=== PATIENT | male | born 1995 | race Hispanic/Latino ===

== ENCOUNTER 2025-02-14 11:04 | Emergency (ER) | payer BC ==
[~2025-02-14] VITALS: Ht 165.1 cm; Wt 61.2 kg
[2025-02-14 11:40] VITALS: BP 127/75; PULSE 60; RESP 17; TEMP 98.5; O2SAT 99
[2025-02-14 11:49] LABS: APPEARANCE,URINE CLOUDY (CLEAR); BILIRUBIN,URINE NEGATIVE (NEGATIVE); COLOR,URINE YELLOW (YELLOW); GLUCOSE, URINE (UA) NEGATIVE (NEGATIVE); KETONES,URINE NEGATIVE (NEGATIVE); LEUKOCYTE ESTERASE ,URINE 500 Leu/uL (NEGATIVE); NITRATE,URINE NEGATIVE (NEGATIVE); PROTEIN,URINE 30 mg/dL (NEGATIVE); UROBILINOGEN,URINE >=8.0 mg/dL (0.2-1.0)
[2025-02-14 11:56] LABS: ADD UA MICROSCOPIC YES
[2025-02-14 12:05] LABS: MUCUS,URINE MANY LPF (None Seen); SQUAMOUS EPITHELIAL CELL,UR RARE /HPF (0-2); WBC CLUMP MANY /HPF (0-1); WBC,URINE TNTC /HPF (0-1)
--- NOTE | 2025-02-14 12:09 | ERN ---
General Chief Complaint: Sexually Transmitted Disease Stated Complaint: STD CHECK Time Seen by MD: 11:05 Time Seen by Midlevel: 11:05 Source: patient History of Present Illness Initial Comments Patient is a 29-year-old male presenting to the emergency department for an STD check. Patient believes he may have been exposed to sexually transmitted disease. Allergies: Coded Allergies: No Known Drug Allergies (Unverified Allergy, Unknown, 02/14/25) Past Medical History Past Medical History: No Pertinent History Past Surgical History: Appendectomy ROS Dictation CONSTITUTIONAL: Negative except for HPI HEAD/FACE: Negative except for HPI EENT: Negative except for HPI RESPIRATORY: Negative except for HPI GASTROINTESTINAL/ABDOMINAL: Negative except for HPI GENITOURINARY: Negative except for HPI MUSCULOSKELETAL: Negative except for HPI INTEGUMENTARY: Negative except for HPI NEUROLOGICAL/PSYCH: Negative except for HPI HEMATOLOGIC/LYMPHATIC: Negative except for HPI All Systems Negative, Except as noted above. 13 point review of systems assessed and all negative except for above. Physical Exam Physical Exam Dictation PHYSICAL EXAM: GENERAL: alert,, awake oriented x 3 HEENT: EOMI, Sclera non icteric, moist mucosa NECK: Supple, no JVD, trachea midline LUNGS: Clear breath sounds bilaterally. No wheezes HEART: Regular rate and rhythm. Normal S1 and S2, without murmurs ABD: Abdomen soft, nontender. Bowel sounds present EXT: No clubbing or cyanosis, NEURO: Alert and oriented to person, follows commands Results Laboratory and Microbiology Lab and Micro Result Laboratory Tests Test 02/14/25 11:36 Urine Color YELLOW (YELLOW) Urine Appearance CLOUDY (CLEAR) H Urine pH 6.0 (5.0-8.0) Urine Specific [place] 1.031 (1.001-1.031) Urine Protein 30 mg/dL (NEGATIVE) H Urine Glucose (UA) NEGATIVE mg/dL (NEGATIVE) Urine Ketones NEGATIVE mg/dL (NEGATIVE) Urine Occult Blood +- (TRACE) (NEGATIVE) H Urine Nitrate NEGATIVE (NEGATIVE) Urine Bilirubin NEGATIVE mg/dL (NEGATIVE) Urine Urobilinogen >=8.0 mg/dL (0.2-1.0) H Urine Leukocyte Esterase 500 Osorio/uL (NEGATIVE) H Labs Reviewed?: Yes MDM Patient is a 29-year-old male presenting to the emergency department for an STD check. Patient believes he may have been exposed to sexually transmitted diseas e. When I attempted to further evaluate the patient they seemed upset because it has been waiting for 1 hour so they decided to eloped from the emergency department. The patient was using foul language and walked out of the ER. ED Course Orders Procedure Category Date Status Time Urinalysis Profile LAB 02/14/25 In Process 11:22 Chlamydia & Gc Pcr NAYELI 02/14/25 In Process 11:22 Culture Urine NAYELI 02/14/25 Logged 11:56 Vital Signs Date Time Temp Pulse Resp B/P (MAP) Pulse Ox O2 Delivery O2 Flow Rate FiO2 02/14/25 11:40 98.4 60 17 127/75 99 Room Air* 0 21 02/14/25 11:22 98.4 60 17 123/75 99 Room Air 0 DX & DISP Disposition: Discharge Departure Impression: Primary Impression: Eloped from emergency department Additional Impression: Possible exposure to STD Condition: Stable I have reviewed the case, and I agree with, Diagnosis and Plan I performed the substantive portion of the visit. I have reviewed and personally made and approve the management plan that is documented in the note by myself or the SALVADOR. I acknowledge for responsibility for the patient's management plan. DEMARCO OCHOA Feb 14, 2025 12:08
== END 2025-02-14 12:41 | disposition left against medical advice (07) ==
LOC: EDH 11:04
DX: Z11.3 Encounter for screening for infections with a predominantly sexual mode of transmission (principal); Z79.899 Other long term (current) drug therapy; Z90.49 Acquired absence of other specified parts of digestive tract
CPT/HCPCS: 81001; 87086; 99283